=== PATIENT | female | born 1950 | race Caucasian/White ===

== ENCOUNTER 2024-11-28 12:37 | Outpatient (AMB) | payer MEDICARE, BC, SELFPAY ==
[2024-11-28 12:43] VITALS: BP 130/68; PULSE 78; O2SAT 98; BMI 24.9
--- NOTE | 2024-11-28 12:43 | MHC.OFFVIS ---
Vital Signs 11/28/24 12:43 Height 5 ft 6 in Weight 154 lb 6 oz BMI 24.9 BP 130/68 Blood Pressure Location Lt brachial Position Sitting Pulse 78 Pulse Source Pulse Oximeter Pulse Oximetry (%) 98 Oxygen Delivery Method Room Air Intake Visit Reasons: Arthritis Intake Note: Patient presents for follow up on osteoarthritis,. She [facility] around January. Allergies Narcotics Adverse Reaction (Mild, Uncoded 11/28/24 12:46) projectile vomiting for hours. HPI HPI Arthritis: Details: She had left knee replacement and left hamstring surgery 2023 with benefit. She is going to PT. She is able to hike. She is no longer requiring cane to ambulate. She had failed cortisone injection L CMC and trigger fingers L 3rd and thumb x3. She is planning surgery next week with [facility] but was told that it was only for management of trigger fingers. She continues to have constant pain left CMC and would like to have it surgically operated. She uses diclofenac gel 4 times a day without benefit. She plans to have surgery on her right shoulder in 05/2025. [facility] Medical History (Updated 11/28/24 @ 13:51 by Yoni Camara MD) Feeling of incomplete bladder emptying Surgical History (Updated 11/28/24 @ 12:49 by Lashonda Camp CMA) Hx of cholecystectomy H/O shoulder surgery History of hip surgery H/O knee surgery H/O hand surgery History of partial hysterectomy Social History (Updated 11/28/24 @ 12:50 by Lashonda Camp CMA) Household Members: Spouse Alcohol intake: never Patient Tobacco Use Status: Never used Tobacco Use of substances other than those prescribed or required for medical reasons: No Physical Exam Vital Signs: Last Vital Signs Pulse 78 11/28/24 12:43 BP 130/68 11/28/24 12:43 Pulse Ox 98 11/28/24 12:43 Oxygen Delivery Method Room Air 11/28/24 12:43 BMI result Body Mass Index 24.9 Const Other: General: Comfortable Skin: No lesions seen MSK: Squaring of CMC left without synovitis. Tenderness to palpate left CMC. Nodule palpated palmar aspect of left thumb with tenderness on palpation. No triggering observed. Weak teacher early childhood development Assessment & Plan Assessment & Plan (1) Osteoarthritis of carpometacarpal joint of left thumb: Comment: Uncontrolled pain on diclofenac gel 1% applied to affected area q.i.d.. She has failed cortisone injections x3. Code(s): M18.12 - Unilateral primary osteoarthritis of first carpometacarpal joint, left hand Category: Medical Qualifiers: Osteoarthritis type: primary Qualified Code(s): M18.12 - Unilateral primary osteoarthritis of first carpometacarpal joint, left hand Plan: Patient will be having surgery for management of trigger finger on her left hand and is requesting surgery for left CMC osteoarthritis at the same time. I have also asked her to communicate her request for surgery to manage left CMC osteoarthritis pain with hand surgeon Dr. Wesley. I will forward my note to Dr. Wesley. Return to clinic PRN [facility]ing [facility] (2) Trigger finger of left hand: Comment: Left thumb and 3rd finger. Recurrent. Failed cortisone injections. Code(s): M65.30 - Trigger finger, unspecified finger Category: Medical Qualifiers: Trigger finger location: thumb Qualified Code(s): M65.312 - Trigger thumb, left thumb Plan: She is planning to have surgery next week with physician at [facility] I recommend occupational therapy to improve hand strength patient. Patient will further discuss with her provider at [facility] after surgery. Return to clinic p.r.n. Coding Level of Care Code Est Pt Level 3 (15538) Complex EM visit Add On G2211 Diagnoses Primary osteoarthritis of first carpometacarpal joint of left hand M18.12 Osteoarthritis type: primary Trigger finger of left thumb M65.312 Trigger finger location: thumb
--- OUTSIDE RECORDS SUMMARY | 2024-11-28 13:07 | XMS_ITS | Continuity of Care Document ---
Author Organization +[facility] Address [address] [place] [address] Phone Care Team Providers Care Director Property Name Role Phone Maylin Mathis Unavailable Unavailable Allergies, Adverse Reactions, Alerts Substance Reaction Status Criticality No Known Allergies Active No Inform ation Medications Medication Instructions Dosage Effective Dates (start - stop) Status Comments CALCIUM (unknown strength) Not Available - Active magnesium 200 mg tablet - Active COLCHICINE (unknown strength) take 1 tablet by oral route every day Not Available - Active AMLODIPINE BESYLATE (unknown strength) take 1 tablet by oral route every day Not Available - Active Procedures Procedure Date POSTOP FOLLOW-UP VISIT LAPARO CHOLECYSTECTOMY/GRAPH OFFICE/OUTPATIENT VISIT, NEW Advance Directives Directive Yes / No Effective Date File Name No Information Encounters Encounter Description Practice Location Reason(s) For Visit Diagnoses Date Provider Providers Copied on Encounter +Yoselin Willis [facility] , [address], [place], [address], [place] tel:[phone] [facility] Chronic cholecystitis (chief complaint) Essential (primary) hypertensionCa lculus of gallbladder with other cholecystitis without obstruction 2 Delfina Carlisle. [address], [address], [place], [place], [id number], [place]. tel:[phone] Referring Provider: Isabel Lara MD, [address], [place], [address]. tel:[phone] +[facility] , [address], [place], [address], [place] tel:[phone] [facility] No Information 2 Delfina Carlisle. [address], [address], [place], [place], [id number], [place]. tel:[phone] Referring Provider: Isabel Lara MD, [address], [place], [address]. tel:[phone] OFFICE/OUTPA TIENT VISIT, NEW +[facility] , [address], [place], [address], [place] tel:[phone] [facility] gallbladder disease (chief complaint) Calculus of gallbladder with other cholecystitis without obstruction 2 Delfina Maylin. [address], [address], [place], [place], [id number], [place]. tel:[phone] Referring Provider: Isabel Lara MD, [address], [place], [address]. tel:[phone] Family History Family Member Type Diagnosis Age At Onset No Information Immunizations Vaccine Date Status Comments Pneumo (2 yrs or older)(PPV) administered Note: EXACT DOS UNK ; Source: Other Provider Flu (split) (3 yrs or older) administered Note: EXACT DOS UNK ; Source: Other Provider Payers Payer name Insurance type Covered constitution party ID Authoriza tion(s) MEDICARE MB [id number] [facility] [id number] Social History Type Description Quantity Date Captured Comments Alcohol Use Details No Caffeine Use Details coffee 2 cups per day Tobacco Use Status No Information Smoking Status Former smoker Sex Female Vital Signs Date / Time: Height Weight BMI Pulse Rate Blood Pressure Temperature Respiratory Rate Body Surface Area Head Circumference Head Circ. Percentile Wt./Cas. Percentile BMI percentile Pulse Ox Inhaled Ox 9:22 AM 66.00 in 66.224 kg (146.00 lbs) 23.5 6 kg/m eter (2) 80 /min 158/90 mm[Hg] Chief Complaint And Reason For Visit From encounter dated '01/16/2022 09:00'. Chronic cholecystitis (chief complaint). Description: Patient here post op for laparoscopic cholecystectomy with cholangiogram 12/30/2021. Patient is doing well with no complications and no concerns Reason For Referral Reason For Referral No Information Plan Of Treatment Date Type Action Status Referral Referred To: [facility] [address] [place], [phone] Ordered: Referrals: Surgery. [facility]. Surgery ordered Patient Education Health Information for You: MedlinePl~ completed History Of Present Illness Encounter Date Complaint History Of Prese nt Illness Chronic cholecystitis Patient he re post op for laparoscopic cholecystectomy with cholangiogram 12/30/2021. Patient is doing well with no complications and no concerns gallbladder disease Onset was 2 years ago. It occurs intermittently. Location is RUQ. There is no radiation. Symptom is aggravated by food (dairy products) and shell fish. Relieving factors include diet. Additional information: New patient consult and treat for gallbladder disease. Patient has result of US and will like to discuss surgical management with the provider. Functional Status Date Functional Assessmen t Pain Score 0/10 Instructions Date Instruction Additional Infor jeet Take medications as prescribed. Follow up with PCP. Related to Essential (primary) hypertension You were seen today in follow up after gallbladder surgery. You are recovering well. You may start to liberalize your diet and increase your activity. In another week, your activity will only be limited by symptoms. Please follow up for fever, jaundice, uncontrolled abdominal pain or nausea, redness spreading outward from incisions or cloudy drainage from incisions. Related to Calculus of gallbladder with other cholecystitis without obstruction Lifestyle education regarding diet (procedure) Related to Hypertension Giving encouragement to exercise Related to Hypertension Participate in 30 mi nutes of aerobic activity three times per week Related to Essential (primary) hypertension medications as prescribed. Relat ed to Essential (primary) hypertension low sodium diet. Related to Esse ntial (primary) hypertension Resume normal activities Related to Calculus of gallbladder with other cholecystitis without obstruction Resume a normal diet Related to Calculus of gallbladder with other cholecystitis without obstruction Your symptoms and di agnostic studies are consistent with gallbladder disease. I have recommended surgery to remove your gallbladder. This will be scheduled at the next available opportunity. Please refrain from taking medications containing ibuprofen or aspirin until after surgery. Related to Calculus of gallbladder with other cholecystitis without obstruction Surgery will be sche duled for the next available opportunity Related to Calculus of gallbladder with other cholecystitis without obstruction Take analgesics as needed Relate d to Calculus of gallbladder with other cholecystitis without obstruction Continue to follow a low fat t Related to Calculus of gallbladder with other cholecystitis without obstruction Assessments Type Assessment Date assessment Essential (primary) hypertension assessment Calculus of gallblad alvino with other cholecystitis without obstruction impression Mrs. Sandee Lambert presents for routine follow up after laparoscopic cholecystectomy with cholangiogram 12/30/2021. She is recovering well. She is tolerating a diet, has minimal incisional pain and her pre-operative symptoms are resolved. Incisions are well-approximated without infection. Pathology is consistent with cholelithiasis and chronic cholecystitis. impression HTN Mental Status Date Cognitive Assessment Orientation - Chokio ed to time, place, person, situation.Normal Orientation Patient Care Teams Name Effective Dates (start - stop) Status Members No Information
--- OUTSIDE RECORDS SUMMARY | 2024-11-28 13:07 | XMS_ITS | Data Portability ---
Author Organization [facility] [address] [facility] Address [address] [place] [address] Assessment No assessment recorded. Plan of Treatment Reminders Order Date Submit Date Provider Last Modified By Organization Details Last Modified Time Details Appointments None recorded. Lab None recorded. Referral None recorded. Procedures None recorded. Surgeries None recorded. Imaging None recorded. Medication Orders Augmentin 875 mg-125 mg tablet 2016 017 INTERFACE Not available 7 20:31:02 Patient TargetsNo targets recorded. Patient Instructions Encounter Date Encounter Id Patient Instructions Last Modified By Organization Details Last Modified Time 09/30/2017 [id number] f/u 24 if needed [email or web address] Not availabl e 09/30/2017 20:30:56 02 sat 98% befor e leaving and no wheezing Pt told can come back tomorrow if needed but feels much better and states she can now talk. [email or web address] Not available 09/30/2017 20:30:48 Reason for Referral None Reported. Problems Name Problem SNOMED Code Status Onset Date Resolution Date Notes Provider Name and Address Organization Details Recorded Time Asthma [id number] Active GOLDIE Cottrell, [facility] 09/30/2017 20:04:18 Problem Notes None recorded. Procedures Surgical History Date Name Laterality Status Provider Name and Address Organization Details Recorded Time 7 Nebulizer tx completed Niecy Cheatham PA-C [facility] 09/30/2017 20:29:27 Imaging Results None recorded. Procedure Notes None recorded. Medical Equipment None Reported. Medications Name Sig Start Date Stop Date Status Note LastModified by Organization Details LastModified Time Augmentin 875 mg-125 mg tablet Take 1 tablet every 12 hours by oral route with meals for 10 days. 12/07/2 017 active Not Available Not Available Not Avai lable amlodipine 2.5 mg tablet active Not Available Not Available Not Available temazepam 15 mg capsule active Not Available Not Available N ot Available Vitals Date Recorded Body height Body mass index (BMI) Body weight Heart rate Body temperature Oxygen saturation Oxygen saturation in Arterial blood by Pulse oximetry Systolic blood pressure Diastolic blood pressure Provider Name and Address Organization Details Last Updated DateTime 7 170.18 cm 24 kg/m2 57963.6 3 g 98 /min 97.7 [degF] 97 % 97 % 150 mm[Hg] 90 mm[Hg] Neelima Negrete MA [place] [facility] 7 19:57:24 Social History None recorded. Functional Status None recorded. Mental Status None recorded. Family History Nothing Reported. Medical History No medical history recorded. Gynecological HistoryNo gynecological history recorded. Obstetrics History GPAL:G 0 P 0 0 0 0 Past Encounters Encounter ID Performer Location Encounter Start Date Encounter Closed Date Diagnosis/Indication Diagnosis SNOMED-CT Code Diagnosis ICD10 Code Diagnosis Note [id number] Niecy Cheatham PA-C [facility] [address] [facility] [address] [place] [address] 09/30/2017 19:52:03 10/07/2017 12:44:29 Acute left otitis media 184012629 H66.92 just starting Asthmatic bronchitis 405 539378 J45.909 has inhalers Health Concerns Section Related Observation LastModified by Organization Detai ls LastModified Time None Recorded Concern Status LastModified by Organization Details LastModified Time None Recorded Advance Directives Directive None Recorded Payers Encounter Date Sequence Insurance Name Policy Number Policy Looney Covered Member ID Looney Member ID Guarantor Name 09/30/2017 1 MEDICARE [place]: [employer] Seema Contreras [id number] Seema Lambert 09/30/2017 2 [place]: [facility] Jake Lambert [id number] Seema Lambert Notes Date Note Type Note Provider Name and Address Organization Details Recorded Time 09/30/2017 text/html 67 y/o female he re with spouse from [facility] down here vacationing Pt has hx of asthma on Xopen? e x and Asthmanex inhalers. Increased coughing and wheezing GOLDIE Cottrell, [place] [facility] 09/30/2017 20:31:22 OBGyn Episode No OBEpisode recorded.
--- OUTSIDE RECORDS SUMMARY | 2024-11-28 13:07 | XMS_ITS | Continuity of Care Document ---
Author Organization [facility] Address [address] [place] [address] Phone Care Team Providers Care Emergency Department Name Role Phone Denilson SUAREZ, Robin Unavailable Unavailable Advance Directives Directive Yes / No Effective Date File Name No Information Encounters Encounter Description Practice Location Reason(s) For Visit Diagnoses Date Provider Providers Copied on Encounter [facility], [address], [place], [place], [id number], [place] tel: [phone] BEBETO Peralta No Information Denilson Kelly. [address], [address], [place], [place], [address], [place]. tel:[phone] Family History Family Member Type Diagnosis Age At Onset No Information Payers Payer name Insurance type Covered democrat ID Authoriza tion(s) No Information Social History Type Description Quantity Date Captured Comments Sex Female Smoking Status No Information Chief Complaint And Reason For Visit No Information Reason For Referral Reason For Referral No Information History Of Present Illness Encounter Date Complaint History Of Prese nt Illness No Information Functional Status Date Functional Assessmen t No Information Instructions Date Instruction Additional Infor mation No Information Assessments Type Assessment Date No Information Patient Care Teams Name Effective Dates (start - stop) Status Members No Information
== END 2024-11-28 13:17 | disposition home or self-care (01) ==
PROVIDERS: PCP Internal Medicine; Visit Provider Internal Medicine Rheumatology
DX: M18.12 Unilateral primary osteoarthritis of first carpometacarpal joint, left hand (principal); M65.312 Trigger thumb, left thumb
CPT/HCPCS: 99213; G2211

== ENCOUNTER → 2024-11-28 12:37 | Outpatient (BNVA) | payer MEDICARE, BC, SELFPAY | PROVIDERS: PCP Internal Medicine; Visit Provider Internal Medicine Rheumatology | DX: M18.12 Unilateral primary osteoarthritis of first carpometacarpal joint, left hand (principal); M65.312 Trigger thumb, left thumb | CPT/HCPCS: 99212 ==